=== PATIENT | male | born 1990 | race Two or more races ===

== ENCOUNTER 2021-10-22 15:57 | Emergency (ER) | payer OTHER ==
[~2021-10-22] VITALS: Ht 172.7 cm; Wt 86.4 kg
[2021-10-22] MEDS ORDERED: KETOROLAC TROMETHAMINE 60 MG/2 ML VIAL IM ONE ×2 (16:15→16:30)
[2021-10-22 19:30] VITALS: BP 118/85
== END 2021-10-22 19:50 ==
LOC: EMS 15:57
DX: S52.611A Displaced fracture of right ulna styloid process, initial encounter for closed fracture (principal); W19.XXXA Unspecified fall, initial encounter; Y93.89 Activity, other specified; Y92.149 Unspecified place in prison as the place of occurrence of the external cause; Y99.8 Other external cause status
CPT/HCPCS: 29125; 73090; 73110; 96372; 99284; J1885

== ENCOUNTER 2025-04-16 10:57 | Day surgery (SDC) | payer OTHER ==
[~2025-04-16] VITALS: Ht 170.2 cm; Wt 90.5 kg
[~2025-04-16 10:57] MED LIST: 0.9% SODIUM CHLORIDE 10 ML VIAL ONE; ACETAMINOPHEN/ISO-OSM 1000 MG/100 ML BOTTLE IV ONE; DEXAMETHASONE SOD PHOS 4 MG/ML VIAL ONE; LIDOCAINE/PF 2% 5 ML VIAL ONE; ONDANSETRON HCL 4 MG/2 ML VIAL ONE; PROPOFOL 1% 20 ML VIAL IVP ONE; RINGERS SOLUTION,LACTATED 1,000 ML IV ONE
[2025-04-16] MEDS: ETHYL ALCOHOL 62% ANTISEPTIC NASAL SANITIZER 0.6 ML AMPUL NASAL ONE (11:20)
[2025-04-16] MEDS: CHLORHEXIDINE GLUCONATE 2% TOWELETTE [2'S/6'S] TP ONE (11:21)
[2025-04-16] MEDS: RINGERS SOLUTION,LACTATED 1,000 ML IV ONE (11:37)
[2025-04-16] MEDS ORDERED: BACITRACIN 28 GM OINTMENT TP ONE (13:36)
[2025-04-16] MEDS: LIDOCAINE/PF 2% 5 ML VIAL ONE (13:37)
[2025-04-16] MEDS: BUPIVACAINE/EPI/PF 0.5% 30 ML VIAL ONE (13:37)
[2025-04-16] MEDS ORDERED: MEPERIDINE-PF 25 MG/ML VIAL IVP PRN (14:00)
[2025-04-16] MEDS ORDERED: FentaNYL CITRATE PF 100 MCG/2 ML VIAL IVP PRN (14:00)
[2025-04-16] MEDS ORDERED: OXYGEN THERAPY IH SCH (20:00)
== END 2025-04-16 15:00 | disposition home or self-care (01) ==
LOC: SURGERY 10:57
PROVIDERS: ATTEND Orthopaedic Surgery
DX: T84.84XA Pain due to internal orthopedic prosthetic devices, implants and grafts, initial encounter (principal); Y83.1 Surgical operation with implant of artificial internal device as the cause of abnormal reaction of the patient, or of later complication, without mention of misadventure at the time of the procedure
CPT/HCPCS: 20680; J3490 ×2; J2704; J0690; J1100; J2405; J7120; J0131